=== PATIENT | male | born 1955 | race Caucasian/White ===

== ENCOUNTER → 2021-06-03 | Day surgery (SDC) | payer OTHER ==
[~2021-06-03] VITALS: Ht 177.8 cm; Wt 104.3 kg
[~2021-06-03] MED LIST: ASPIRIN EC81 MG PO; CARAFATE S500 MG/TSP PO; CRESTOR40 MG PO; DUONEB 2.5-0.5M1 AMP NEB; METFORMIN HCL500 MG PO; PROTONIX 40MG T40 MG PO; REQUIP0.25 MG PO; SPIRIVA RESPIMAT4 G1 INH; VENTOLIN HFA18 GM INH; WIXELA 250-501 EACH INH
== END | disposition home or self-care (01) ==
LOC: FAS 07:24
DX: Z12.11 Encounter for screening for malignant neoplasm of colon (principal); K63.5 Polyp of colon; K62.1 Rectal polyp; F17.210 Nicotine dependence, cigarettes, uncomplicated; J44.9 Chronic obstructive pulmonary disease, unspecified; K21.9 Gastro-esophageal reflux disease without esophagitis; E10.9 Type 1 diabetes mellitus without complications; Z86.010 Personal history of colon polyps; Z79.82 Long term (current) use of aspirin
CPT/HCPCS: 82962; J2704; J7120

== ENCOUNTER 2021-08-09 07:58 | Inpatient (IN) | payer OTHER ==
[~2021-08-09] VITALS: Ht 180.3 cm; Wt 107.2 kg
[2021-08-09 08:46] LABS: BASOPHIL 0.3 % (0-2); EOSINOPHIL 0.1 % (0-7); HCT 37.9 % (42.0-52.0); HGB 12.4 g/dl (13.2-18.0); LYMPHOCYTE 7.4 % (15-48); MCH 29.3 pg (25.0-31.0); MCHC 32.7 g/dL (32.0-36.0); MCV 89.6 fL (78.0-100.0); MONOCYTE 8.9 % (0-12); MPV 9.6 fL (6.0-9.5); NEUTROPHIL 82.5 % (41-80); NRBC 0.3; PLT 261 K/uL (150-400); RBC 4.23 M/uL (4.70-6.00); RDW 13.2 % (11.5-14.0); WBC 11.3 K/uL (4.0-10.5)
[2021-08-09 08:50] LABS: INR 1.12 (0.9-1.2); PROTHROMBIN TIME 13.8 SECONDS (11.8-13.4)
[2021-08-09 08:52] LABS: D-DIMER 1.52 ug/mLFEU (0.00-0.41)
[2021-08-09 09:04] LABS: ALBUMIN 2.8 g/dL (3.4-5.0); BILIRUBIN - TOTAL 0.7 mg/dL (0.2-1.0); BUN/CREAT RATIO (CALC) 15.6 RATIO; CREATININE 0.77 mg/dL (0.67-1.17); GLOBULIN (CALCULATION) 4.9 g/dL; MAGNESIUM 2.3 mg/dL (1.8-2.4); POTASSIUM 3.8 mmol/L (3.5-5.1); TOTAL PROTEIN 7.7 g/dL (6.4-8.2)
[2021-08-09 09:21] LABS: CORONAVIRUS 2019 SARS-COV-2 NEGATIVE (NEGATIVE); INFLUENZA A NAA NEGATIVE (NEGATIVE)
[2021-08-09] MEDS ORDERED: METOPROLOL SUCC25 MG PO (15:57)
[2021-08-09 18:22] LABS: BILIRUBIN NEGATIVE (NEGATIVE); BLOOD 2+ Ery/uL (NEGATIVE); CLARITY CLEAR (CLEAR); COLOR YELLOW (YELLOW); GLUCOSE (U) 1+ mg/dL (NORMAL); LEUKOCYTES NEGATIVE Leu/uL (NEGATIVE); NITRITE NEGATIVE (NEGATIVE); PROTEIN 2+ mg/dL (NEGATIVE); SPECIFIC GRAVITY 1.015 (1.001-1.030)
[2021-08-09 18:29] LABS: BACTERIA TRACE; URINARY WBC RARE
[2021-08-09 18:30] LABS: AMORPHOUS URATES CRYSTALS TRACE
[2021-08-10 05:59] LABS: HCT 39.5 % (42.0-52.0); HGB 12.6 g/dl (13.2-18.0); MCH 29.6 pg (25.0-31.0); MCHC 31.9 g/dL (32.0-36.0); MCV 92.7 fL (78.0-100.0); MPV 9.7 fL (6.0-9.5); RBC 4.26 M/uL (4.70-6.00); RDW 13.2 % (11.5-14.0); WBC 8.6 K/uL (4.0-10.5)
[2021-08-10 06:17] LABS: IRON % SATURATION 26.5 %SAT (20-50)
[2021-08-10 06:45] LABS: BUN/CREAT RATIO (CALC) 24.6 RATIO; CREATININE 0.69 mg/dL (0.67-1.17)
[2021-08-10 14:26] LABS: HGB 11.9 g/dl (13.2-18.0); MCH 29.4 pg (25.0-31.0); MCHC 31.3 g/dL (32.0-36.0); MCV 93.8 fL (78.0-100.0); MPV 9.3 fL (6.0-9.5); RBC 4.05 M/uL (4.70-6.00); RDW 13.5 % (11.5-14.0); WBC 8.9 K/uL (4.0-10.5)
[2021-08-10 14:55] LABS: CREATININE 0.68 mg/dL (0.67-1.17); POTASSIUM 4.3 mmol/L (3.5-5.1)
[2021-08-11 06:16] LABS: HGB 11.2 g/dl (13.2-18.0); MCH 29.8 pg (25.0-31.0); MCHC 31.1 g/dL (32.0-36.0); MCV 95.7 fL (78.0-100.0); MPV 9.7 fL (6.0-9.5); RBC 3.76 M/uL (4.70-6.00); RDW 13.6 % (11.5-14.0); WBC 8.5 K/uL (4.0-10.5)
[2021-08-11 07:05] LABS: BUN/CREAT RATIO (CALC) 16.7 RATIO; CREATININE 0.72 mg/dL (0.67-1.17); POTASSIUM 3.4 mmol/L (3.5-5.1)
[2021-08-11] MEDS ORDERED: PREDNISONE 20MG20 MG PO ×2 (12:10→12:23)
[2021-08-11] MEDS ORDERED: SACCHAROMYCES250 MG PO ×2 (12:10→12:23)
[2021-08-11] MEDS ORDERED: FOLIC ACID1 MG PO (12:10)
[2021-08-11] MEDS ORDERED: AUGMENTIN 500-1 EACH PO ×2 (12:10→12:23)
[2021-08-11] MEDS ORDERED: VIBRAMYCIN100 MG PO ×2 (12:10→12:23)
--- NOTE | 2021-08-12 16:04 | NUR ---
Mr. Armstrong lives alone. He has 02 at 2L for nocturnal use and now requires continuos 02 at 3 L. He is a . Graciela, , ID arranged for [facility] to deliver continuos 02. -
== END 2021-08-11 16:55 | disposition home or self-care (01) | DRG 871 ==
LOC: FER 07:58 → FTCU 11:04
PROVIDERS: Emergency Medicine; ADMIT Family Medicine
DX: A41.9 Sepsis, unspecified organism (principal); J96.21 Acute and chronic respiratory failure with hypoxia; G93.41 Metabolic encephalopathy; J18.9 Pneumonia, unspecified organism; J44.1 Chronic obstructive pulmonary disease with (acute) exacerbation; J44.0 Chronic obstructive pulmonary disease with (acute) lower respiratory infection; E87.1 Hypo-osmolality and hyponatremia; J90 Pleural effusion, not elsewhere classified; Z66 Do not resuscitate; Z20.822 Contact with and (suspected) exposure to COVID-19; R65.20 Severe sepsis without septic shock; D64.9 Anemia, unspecified; E11.9 Type 2 diabetes mellitus without complications; I10 Essential (primary) hypertension; E78.5 Hyperlipidemia, unspecified; Z99.81 Dependence on supplemental oxygen; G47.33 Obstructive sleep apnea (adult) (pediatric); Z98.890 Other specified postprocedural states; Z87.891 Personal history of nicotine dependence; Z82.49 Family history of ischemic heart disease and other diseases of the circulatory system; Z83.3 Family history of diabetes mellitus
CPT/HCPCS: 36415; 36600; 71250; 71275; 80048; 80053; 81001; 82140; 82607; 82803; 82962; 83036; 83540; 83550; 83605; 83735; 83880; 84145; 84484; 85025; 85379; 85610; 85730; 87040; 87070; 87205; 93005; 94010; 94640; 94664; 94667; 94668; 94762; 97161; 97165; J0696; J1650; J1815; J2543; J2930; J7050; J7512; Q9967; U0002